=== PATIENT | female | born 1990 | race Caucasian/White ===

== ENCOUNTER 2020-09-30 08:52 | Inpatient (IN) | payer OTHER ==
[2020-09-30 09:14] VITALS: BMI 33.0
[2020-09-30] MEDS ORDERED: MAGNESIUM CITRATE 300 ML BOTTLE PO PRN (15:16)
[2020-09-30] MEDS ORDERED: IBUPROFEN 400 MG TABLET (FP) PO PRN (15:16)
[2020-09-30] MEDS ORDERED: P-EPHED 60MG/TRIPROLIDI 2.5MG TABLET PO PRN (15:16)
[2020-09-30] MEDS ORDERED: LOPERAMIDE HCL 2 MG CAPSULE PO PRN (15:16)
[2020-09-30] MEDS ORDERED: MAGNESIUM HYDROX 2400MG/30ML ORAL SUSPENSION 30 ML CUP PO PRN (15:16)
[2020-09-30] MEDS ORDERED: guaiFENesin 200 MG/10 ML 10 ML UNIT-DOSE CUPS PO PRN (15:16)
[2020-09-30] MEDS ORDERED: NICOTINE POLACRILEX 2 MG GUM BC PRN (15:16)
[2020-09-30] MEDS ORDERED: MAG HYDROX/AL HYDROX/SIMETH 30 ML UNIT-DOSE CUP PO PRN (15:16)
[2020-09-30] MEDS ORDERED: ACETAMINOPHEN 325 MG TABLET (FP) PO PRN (15:16)
[2020-09-30] MEDS ORDERED: TUBERCULIN PPD 5 TU/0.1ML VIAL ID ONE (17:07)
[2020-09-30] MEDS: PRENATAL VITAMINS W/ FOLIC ACID TABLET (FP) PO SCH (17:13)
[2020-09-30] MEDS: NICOTINE 7 MG/24 HOURS TOPICAL PATCH TD SCH (17:13)
[2020-09-30] MEDS: hydrOXYzine PAMOATE 25 MG CAPSULE (FP) PO SCH ×2 (17:13→21:08)
[2020-09-30 17:19] VITALS: BP 105/59; PULSE 59; TEMP 97.7
[2020-09-30] MEDS ORDERED: MELATONIN 5 MG TABLETS PO SCH (22:00)
[2020-09-30] MEDS ORDERED: THIAMINE HCL 100 MG TABLET (FP) PO SCH (22:00)
[2020-10-01] MEDS: hydrOXYzine PAMOATE 25 MG CAPSULE (FP) PO SCH ×2 (07:08→10:59)
[2020-10-01 10:50] LABS: HEMATOCRIT 39.3 % (32.4-45.2); HEMOGLOBIN 13.7 GM/dL (10.7-15.3); MCH 32.5 pg (25.7-33.7); MCHC 34.8 g/dl (32.0-36.0); MEAN CELL VOLUME 93.3 fl (80-96); MEAN PLT VOLUME 9.1 fl (7.5-11.1); PLATELET COUNT 231 K/MM3 (134-434); RBC 4.21 M/mm3 (3.60-5.2); RDW 12.9 % (11.6-15.6)
[2020-10-01] MEDS: PRENATAL VITAMINS W/ FOLIC ACID TABLET (FP) PO SCH (10:59)
[2020-10-01] MEDS: NICOTINE 7 MG/24 HOURS TOPICAL PATCH TD SCH (10:59)
[2020-10-01 11:22] LABS: POTASSIUM 4.5 mmol/L (3.5-5.1)
[2020-10-01 11:24] LABS: ALBUMIN 3.4 g/dl (3.4-5.0); CALCIUM 9.3 mg/dL (8.5-10.1)
[2020-10-01 11:25] LABS: BLOOD UREA NITROGEN 11.4 mg/dL (7-18)
[2020-10-01 11:28] LABS: CREATININE 0.8 mg/dL (0.55-1.3)
[2020-10-01 11:29] LABS: BILIRUBIN,TOTAL 0.2 mg/dL (0.2-1); TOT PROT 6.4 g/dl (6.4-8.2)
== END 2020-10-01 12:50 | disposition left against medical advice (07) | DRG 894 ==
LOC: YASAS 08:52 → Y5N 16:24
PROVIDERS: ADMIT Allergy & Immunology; ATTEND Allergy & Immunology
PROC: HZ42ZZZ Group Counseling for Substance Abuse Treatment, Cognitive-Behavioral (ICD-10-PCS; principal; 2020-09-30)
DX: F10.20 Alcohol dependence, uncomplicated (principal); F12.20 Cannabis dependence, uncomplicated; F17.210 Nicotine dependence, cigarettes, uncomplicated; F20.9 Schizophrenia, unspecified; F41.9 Anxiety disorder, unspecified; F32.9 Major depressive disorder, single episode, unspecified; E66.9 Obesity, unspecified; Z68.33 Body mass index [BMI] 33.0-33.9, adult
CPT/HCPCS: 36415; 80053; 81025; 85027; 86780; C9803; U0003